=== PATIENT | female | born 1995 | race Caucasian/White ===

== ENCOUNTER 2023-12-04 13:09 | Emergency (ER) | payer MEDICAID, OTHER ==
[~2023-12-04] VITALS: Ht 167.6 cm; Wt 152.0 kg
[2023-12-04] MEDS ORDERED: IPRATROPIUM/ALBUTEROL 0.5-3(2.5)MG/3ML NEB HHN ONE (14:15)
[2023-12-04 17:05] VITALS: PULSE 78; RESP 24; O2SAT 99
[2023-12-04] MEDS ORDERED: IPRATROPIUM/ALBUTEROL 0.5-3(2.5)MG/3ML NEB ONE (17:12)
[2023-12-04] MEDS ORDERED: ALBU6.7H15 INH (18:00)
[2023-12-04] MEDS ORDERED: BENZ200C52 MT (18:00)
[2023-12-04] MEDS ORDERED: DEXAMETHASONE 10 MG/ML VIAL PO ONE (18:00)
[2023-12-04 18:24] VITALS: BP 137/76; PULSE 84; RESP 18; TEMP 98.4
== END 2023-12-04 18:34 | disposition home or self-care (01) ==
LOC: ER 14:43
DX: R05.9 Cough, unspecified (principal); R06.2 Wheezing
CPT/HCPCS: 71045; 94640; 99283; J1100; Z7610 ×6